=== PATIENT | male | born 1955 | race Caucasian/White ===

== ENCOUNTER 2016-10-08 16:08 | Emergency (ER) | payer MEDICAID ==
[2016-10-08 16:57] VITALS: BP 140/87
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
== END 2016-10-08 18:48 | disposition left against medical advice (07) ==
LOC: ED 16:08
DX: M25.532 Pain in left wrist (principal); R51 Headache; M54.5 Low back pain; K21.9 Gastro-esophageal reflux disease without esophagitis; F17.200 Nicotine dependence, unspecified, uncomplicated; W01.0XXA Fall on same level from slipping, tripping and stumbling without subsequent striking against object, initial encounter; Y93.89 Activity, other specified; Y99.8 Other external cause status; Y92.89 Other specified places as the place of occurrence of the external cause
CPT/HCPCS: 99282